=== PATIENT | female | born 1935 | race African-American/Black ===

== ENCOUNTER 2020-07-21 08:59 | Outpatient (CLI) | payer MEDICARE, OTHER ==
--- NOTE | 2020-07-21 09:56 | MRI ---
Exam: Brain MRI without contrast HISTORY: Cognitive dysfunction. Headache. COMPARISON: None FINDINGS: Calvarial marrow signal intensity: Appropriate T1 signal Gradient echo sequence: No hemorrhage Brain parenchyma: No mass, mass effect or midline shift. Brain volume, age-appropriate. Cortical kimble-white matter differentiation: Preserved Restricted diffusion: Central arterial flow voids are maintained. Absent restricted diffusion White matter signal intensities:Scattered T2, FLAIR white matter hyperintensities due to chronic smal l vessel ischemic changes Sinuses: Minimal mucosal thickening of the ethmoid air cells. Adequate right mastoid air cell aeratio n. Partial opacification of the left mastoid air cells. IMPRESSION: 1. Age-appropriate atrophy. Chronic small vessel ischemic changes of the white matter 2. Absent restricted diffusion. No acute infarct.
== END 2020-07-21 09:00 | disposition home or self-care (01) ==
LOC: BICMRI 08:59
PROVIDERS: ATTEND Family Medicine
DX: F09 Unspecified mental disorder due to known physiological condition (principal); G93.89 Other specified disorders of brain
CPT/HCPCS: 70551

== ENCOUNTER 2024-09-03 09:21 | Inpatient (IN) | payer OTHER ==
[2024-09-03] MEDS ORDERED: Boostrix 0.5 ML (Tdap) VIAL (>/=7 yrs of age) ONE (10:15)
[2024-09-03] MEDS ORDERED: Famotidine/PF 20 mg/2ml Vial ONE (10:22)
[2024-09-03] MEDS ORDERED: methylPREDNISolone Sod Succ 40 MG VIAL ONE (10:22)
[2024-09-03] MEDS ORDERED: diphenhydrAMINE 50 MG/ML VIAL ONE (10:22)
[2024-09-03 10:26] LABS: #Basophils Less than 0.03 10x3/uL (0.0-0.2); #Eosinophils Less than 0.03 10x3/uL (0.0-0.7); %Basophils 0.1 % (0.0-1.0); %Eosinophils 0.1 % (0.0-10.0); %Lymphocytes 7.2 % (21.0-51.0); %Monocytes 8.9 % (0.0-10.0); %Neutrophils 83.3 % (42.0-75.0); Hematocrit 35.5 % (36.0-47.0); Hemoglobin 10.9 g/dL (12.0-16.0); Mean Corpuscular HGB CONC 30.7 g/dL (32.0-36.0); Mean Corpuscular Hemoglobin 22.8 pg (27.0-31.0); Mean Corpuscular Volume 74.3 fL (78.0-98.0); Mean Platelet Volume 12.8 fL (7.4-10.4); Platelet Count 182 10x3/uL (130-400); RBC Distribution Width 15.9 % (11.5-14.5); Red Blood Cell (RBC) Count 4.78 mill/uL (4.20-5.40)
[2024-09-03 10:34] LABS: ALT (SGPT) 22 U/L (8-55); AST (SGOT) 63 U/L (5-34); Albumin 3.1 g/dL (3.4-4.8); Alkaline Phosphatase 103 U/L (40-110); Anion Gap 16 mmol/L (10-20); BUN (Urea Nitrogen) 39 mg/dL (9.8-20.1); Bilirubin, Total 1.2 mg/dL (0.2-1.2); CK (CPK) 2192 U/L (29-168); Calc. Creatinine Clearance 0 mL/min (70-130); Calcium 9.9 mg/dL (7.8-10.44); Carbon Dioxide 18 mmol/L (23-31); Chloride 116 mmol/L (98-107); Estimated GFR 47; Globulin 3.7 g/dL (2.4-3.5); Glucose 120 mg/dL (83-110); Lipase 7 U/L (8-78); Magnesium 2.5 mg/dL (1.6-2.6); Potassium 5.1 mmol/L (3.5-5.1); Protein, Total 6.8 g/dL (5.8-8.1); Sodium 145 mmol/L (136-145)
[2024-09-03 10:38] LABS: Troponin I 0.012 ng/mL (< 0.028)
[2024-09-03 10:59] LABS: Anisocytosis SLIGHT = 6-15 cells HPF (0-5); Burr Cells SLIGHT = 2-5 cells HPF (0-1); Macrocytosis SLIGHT = 6-15 cells HPF (0-5); Ovalocytes SLIGHT = 2-5 cells HPF (0-1); Platelet Adequacy Comment Platelets Normal; Polychromasia SLIGHT = 2-3 cells HPF (0-2)
[2024-09-03] MEDS ORDERED: Morphine 4 MG/ML VIAL ONE (11:18)
[2024-09-03] MEDS ORDERED: Iopamidol-370 76% 500 ML MDV (1 ML CHARGE) ONE (11:53)
[2024-09-03] MEDS ORDERED: Magnevist 469MG/ML 20 ML VIAL ONE (12:19)
[2024-09-03 12:33] LABS: Bacteria/HPF 4+ HPF (None Seen); Bilirubin Negative (Negative); Blood, Urine 2+ (Negative); CAUTI Indications for Culture Alt mental st,lethar; Clarity Extra Turbid (Clear); Glucose, Urine (Dipstick) Normal (Negative); Ketone, Urine Trace mg/dL (Negative); Leukocyte 500 Leu/uL (Negative); Nitrite 1+ (Negative); Protein, Urine (Dipstick) 50 mg/dL (Neg-Trace); Specific Gravity, Urine 1.026 (1.002-1.036); Squamous Epithelial None Seen HPF (0-3); Transitional Epithelial 0-3 HPF (None Seen); Urobilinogen Normal mg/dL (Less than 2); WBC/HPF Greater than 50 HPF (0-3); pH, Urine 5.5 (5.0-9.0)
[2024-09-03 12:36] LABS: Urine Culture Reflex Yes Yes
[2024-09-03] MEDS ORDERED: Cefepime 2 GM VIAL ONE (12:41)
[2024-09-03] MEDS ORDERED: Sodium Chloride 0.9% 100 ML ONE (12:41)
[2024-09-03] MEDS ORDERED: Senokot S 8.6-50 MG TAB PO PRN (13:41)
[2024-09-03] MEDS ORDERED: Bisacodyl 5 MG TAB PO PRN (13:41)
[2024-09-03] MEDS ORDERED: Acetaminophen 650 MG Suppository PR PRN (13:41)
[2024-09-03] MEDS ORDERED: Ondansetron ODT 4 MG TAB PO PRN (13:41)
[2024-09-03 18:35] VITALS: BMI 28.1
[2024-09-03] MEDS ORDERED: Vancomycin 1 GM in Sodium Chloride 0.9% 250 ML 250 ML IVPB SCH (21:00)
[2024-09-03] MEDS: Sodium Chloride 0.9% 1,000 ML IV SCH (21:16)
[2024-09-03] MEDS: Vancomycin 1 GM in Premix 1 BAG IVPB SCH (21:16)
[2024-09-03] MEDS: Acetaminophen 325 MG TAB PO PRN (21:29)
[2024-09-04] MEDS: Cefepime 2 GM in Sodium Chloride 0.9% 100 ML IVPB SCH (00:21)
[2024-09-04 04:16] LABS: #Basophils Less than 0.03 10x3/uL (0.0-0.2); #Eosinophils Less than 0.03 10x3/uL (0.0-0.7); %Basophils 0.1 % (0.0-1.0); %Lymphocytes 6.1 % (21.0-51.0); %Monocytes 5.7 % (0.0-10.0); %Neutrophils 87.5 % (42.0-75.0); Hematocrit 33.1 % (36.0-47.0); Mean Corpuscular HGB CONC 30.2 g/dL (32.0-36.0); Mean Corpuscular Hemoglobin 23.1 pg (27.0-31.0); Mean Corpuscular Volume 76.4 fL (78.0-98.0); Platelet Count 188 10x3/uL (130-400); Red Blood Cell (RBC) Count 4.33 mill/uL (4.20-5.40); Vancomycin, Random 37.9 ug/mL (See Comment)
[2024-09-04 04:17] LABS: Anion Gap 19 mmol/L (10-20); BUN (Urea Nitrogen) 45 mg/dL (9.8-20.1); Calc. Creatinine Clearance 34 mL/min (70-130); Calcium 9.1 mg/dL (7.8-10.44); Carbon Dioxide 15 mmol/L (23-31); Chloride 115 mmol/L (98-107); Estimated GFR 41; Glucose 109 mg/dL (83-110); Potassium 4.8 mmol/L (3.5-5.1); Sodium 144 mmol/L (136-145)
[2024-09-04 05:38] LABS: Hemoglobin A1c 5.3 % (4.0-6.0)
[2024-09-04] MEDS: Vancomycin (BATCH) 1.75 GM in Premix 1 BAG IVPB SCH (07:13)
[2024-09-04] MEDS: Sotalol HCl 80 MG TAB PO SCH (08:49)
[2024-09-04 10:40] VITALS: BMI 28.8
[2024-09-04] MEDS ORDERED: Vancomycin Dose by Levels Sliding Scale (Wt 71-99) FS SCH (12:30)
[2024-09-04] MEDS: Cefepime 1 GM in Sodium Chloride 0.9% 100 ML IVPB SCH (23:51)
[2024-09-05 04:44] LABS: ALT (SGPT) 25 U/L (8-55); AST (SGOT) 52 U/L (5-34); Albumin 2.6 g/dL (3.4-4.8); Alkaline Phosphatase 71 U/L (40-110); Anion Gap 13 mmol/L (10-20); BUN (Urea Nitrogen) 43 mg/dL (9.8-20.1); Bilirubin, Total 0.6 mg/dL (0.2-1.2); Calc. Creatinine Clearance 39 mL/min (70-130); Calcium 8.8 mg/dL (7.8-10.44); Carbon Dioxide 17 mmol/L (23-31); Chloride 116 mmol/L (98-107); Estimated GFR 47; Globulin 3.2 g/dL (2.4-3.5); Glucose 79 mg/dL (83-110); Protein, Total 5.8 g/dL (5.8-8.1); Sodium 142 mmol/L (136-145)
[2024-09-05 04:55] LABS: Hematocrit 28.8 % (36.0-47.0); Hemoglobin 8.9 g/dL (12.0-16.0); Mean Corpuscular HGB CONC 30.9 g/dL (32.0-36.0); Mean Corpuscular Hemoglobin 22.8 pg (27.0-31.0); Mean Corpuscular Volume 73.8 fL (78.0-98.0); Mean Platelet Volume 12.8 fL (7.4-10.4); Platelet Count 170 10x3/uL (130-400); RBC Distribution Width 15.9 % (11.5-14.5)
[2024-09-05 06:15] LABS: Band 1 % (5-11); Eosinophils 1 % (0-10); Hypochromia SLIGHT = 6-15 cells HPF (0-5); Lymphocytes 19 % (21-51); Microcytosis SLIGHT = 6-15 cells HPF (0-5); Monocytes 3 % (0-10); Neutrophil 76 % (42-75); Ovalocytes SLIGHT = 2-5 cells HPF (0-1); Platelet Adequacy Comment Platelets Normal; Poikilocytosis SLIGHT = 6-15 cells HPF (0-5); Polychromasia SLIGHT = 2-3 cells HPF (0-2)
[2024-09-05] MEDS: Morphine 2 MG/ML VIAL SLOW IVP PRN (11:57)
[2024-09-05 12:11] LABS: Vancomycin, Trough 19.5 ug/mL
[2024-09-05] MEDS: Vancomycin HCl 500 MG in Sodium Chloride 0.9% 100 ML IV SCH (13:52)
[2024-09-06 05:45] LABS: #Basophils Less than 0.03 10x3/uL (0.0-0.2); %Basophils 0.3 % (0.0-1.0); %Lymphocytes 23.5 % (21.0-51.0); %Monocytes 9.7 % (0.0-10.0); %Neutrophils 60.7 % (42.0-75.0); Hemoglobin 9.1 g/dL (12.0-16.0); Mean Corpuscular HGB CONC 30.3 g/dL (32.0-36.0); Mean Corpuscular Hemoglobin 23.1 pg (27.0-31.0); Mean Corpuscular Volume 76.1 fL (78.0-98.0); Mean Platelet Volume 13.4 fL (7.4-10.4); Platelet Count 150 10x3/uL (130-400); RBC Distribution Width 16.1 % (11.5-14.5); Red Blood Cell (RBC) Count 3.94 mill/uL (4.20-5.40)
[2024-09-06 05:56] LABS: Anion Gap 11 mmol/L (10-20); BUN (Urea Nitrogen) 39 mg/dL (9.8-20.1); Calc. Creatinine Clearance 46 mL/min (70-130); Calcium 8.7 mg/dL (7.8-10.44); Carbon Dioxide 16 mmol/L (23-31); Chloride 119 mmol/L (98-107); Estimated GFR 58; Glucose 91 mg/dL (83-110); Potassium 3.9 mmol/L (3.5-5.1); Sodium 142 mmol/L (136-145)
[2024-09-06] MEDS: Atorvastatin Calcium 10 MG TAB PO SCH (11:34)
[2024-09-06] MEDS: Losartan 25 MG TAB PO SCH (11:35)
[2024-09-06] MEDS: Lidocaine 4% Patch TD SCH (11:35)
[2024-09-06] MEDS: Isosorbide Mononitrate 30 MG ER.TAB PO SCH (11:35)
[2024-09-06 17:02] LABS: Vancomycin, Trough 17.3 ug/mL
[2024-09-06 17:05] LABS: ALT (SGPT) 21 U/L (8-55); AST (SGOT) 30 U/L (5-34); Albumin 2.2 g/dL (3.4-4.8); Alkaline Phosphatase 77 U/L (40-110); Anion Gap 12 mmol/L (10-20); BUN (Urea Nitrogen) 36 mg/dL (9.8-20.1); Bilirubin, Total 0.3 mg/dL (0.2-1.2); Calc. Creatinine Clearance 41 mL/min (70-130); Calcium 8.3 mg/dL (7.8-10.44); Carbon Dioxide 14 mmol/L (23-31); Chloride 119 mmol/L (98-107); Estimated GFR 50; Globulin 2.9 g/dL (2.4-3.5); Glucose 127 mg/dL (83-110); Potassium 3.8 mmol/L (3.5-5.1); Protein, Total 5.1 g/dL (5.8-8.1); Sodium 141 mmol/L (136-145)
[2024-09-06] MEDS: Transdermal Lidocaine Patch Removal TOP SCH (21:00)
[2024-09-07 05:05] LABS: #Basophils Less than 0.03 10x3/uL (0.0-0.2); %Basophils 0.3 % (0.0-1.0); %Eosinophils 4.7 % (0.0-10.0); %Lymphocytes 24.6 % (21.0-51.0); %Monocytes 10.3 % (0.0-10.0); %Neutrophils 57.2 % (42.0-75.0); Hematocrit 26.4 % (36.0-47.0); Hemoglobin 8.1 g/dL (12.0-16.0); Mean Corpuscular HGB CONC 30.7 g/dL (32.0-36.0); Mean Corpuscular Hemoglobin 22.8 pg (27.0-31.0); Mean Corpuscular Volume 74.4 fL (78.0-98.0); Mean Platelet Volume 12.5 fL (7.4-10.4); Platelet Count 130 10x3/uL (130-400); RBC Distribution Width 16.2 % (11.5-14.5); Red Blood Cell (RBC) Count 3.55 mill/uL (4.20-5.40)
[2024-09-07 05:13] LABS: Anion Gap 9 mmol/L (10-20); BUN (Urea Nitrogen) 32 mg/dL (9.8-20.1); Calc. Creatinine Clearance 45 mL/min (70-130); Calcium 8.2 mg/dL (7.8-10.44); Carbon Dioxide 19 mmol/L (23-31); Chloride 118 mmol/L (98-107); Estimated GFR 56; Glucose 92 mg/dL (83-110); Magnesium 2.3 mg/dL (1.6-2.6); Potassium 4.2 mmol/L (3.5-5.1); Sodium 142 mmol/L (136-145)
[2024-09-07] MEDS: Potassium Chloride 20 MEQ TAB PO SCH (09:15)
[2024-09-07] MEDS ORDERED: Lidocaine 1% PF 5 ML VIAL ONE (12:44)
[2024-09-07] MEDS ORDERED: Sodium Bicarbonate 2.5 MEQ/5 ML SDV ONE (12:44)
[2024-09-07] MEDS ORDERED: Acetaminophen 325 MG TAB PO PRN (13:15)
[2024-09-07] MEDS: Vancomycin HCl 500 MG in Sodium Chloride 0.9% 100 ML IVPB SCH (15:30)
[2024-09-07] MEDS: Acetaminophen 325 MG TAB PO SCH (15:42)
[2024-09-07] MEDS: Vancomycin HCl 750 MG in Sodium Chloride 0.9% 250 ML 250 ML IVPB SCH (16:24)
[2024-09-07] MEDS: Senokot S 8.6-50 MG TAB PO SCH (21:28)
[2024-09-07] MEDS: Thiamine 100 MG TAB PO SCH (21:28)
[2024-09-07] MEDS: Multivit, Therapeutic 1 TAB PO SCH (21:28)
[2024-09-07] MEDS: traMADol HCl 50 MG TAB PO PRN (21:28)
[2024-09-07] MEDS: Cyanocobalamin (Vitamin B-12) 1,000 MCG TAB PO SCH (21:28)
[2024-09-07] MEDS: Folic Acid 1 MG TAB PO SCH (21:28)
[2024-09-07] MEDS: Cefepime 2 GM in Sodium Chloride 0.9% 100 ML IVPB SCH (23:55)
[2024-09-08 05:42] LABS: #Basophils 0.05 10x3/uL (0.0-0.2); %Basophils 0.7 % (0.0-1.0); %Eosinophils 4.7 % (0.0-10.0); %Lymphocytes 21.7 % (21.0-51.0); %Monocytes 9.9 % (0.0-10.0); %Neutrophils 58.1 % (42.0-75.0); Hematocrit 27.3 % (36.0-47.0); Hemoglobin 7.9 g/dL (12.0-16.0); Mean Corpuscular HGB CONC 28.9 g/dL (32.0-36.0); Mean Corpuscular Hemoglobin 22.7 pg (27.0-31.0); Mean Corpuscular Volume 78.4 fL (78.0-98.0); Mean Platelet Volume 13.2 fL (7.4-10.4); Platelet Count 142 10x3/uL (130-400); RBC Distribution Width 16.5 % (11.5-14.5); Red Blood Cell (RBC) Count 3.48 mill/uL (4.20-5.40)
[2024-09-08 06:12] LABS: Burr Cells SLIGHT = 2-5 cells HPF (0-1); Elliptocytes SLIGHT = 2-5 cells HPF (0-1); Platelet Adequacy Comment Platelets Normal
[2024-09-08 06:23] LABS: Vancomycin, Random 11.2 ug/mL (See Comment)
[2024-09-08 06:27] LABS: CK (CPK) 163 U/L (29-168); Calc. Creatinine Clearance 44 mL/min (70-130); Estimated GFR 54; Magnesium 2.2 mg/dL (1.6-2.6)
[2024-09-08 06:32] LABS: Anion Gap 10 mmol/L (10-20); BUN (Urea Nitrogen) 30 mg/dL (9.8-20.1); Calc. Creatinine Clearance 45 mL/min (70-130); Calcium 8.8 mg/dL (7.8-10.44); Carbon Dioxide 15 mmol/L (23-31); Chloride 118 mmol/L (98-107); Estimated GFR 56; Glucose 84 mg/dL (83-110); Phosphorus 2.4 mg/dL (2.3-4.7); Potassium 4.2 mmol/L (3.5-5.1); Sodium 139 mmol/L (136-145)
[2024-09-08] MEDS: Ergocalciferol 1.25 MG(50,000 UNITS) CAP PO SCH (09:25)
[2024-09-08 13:26] LABS: Anion Gap 10 mmol/L (10-20); BUN (Urea Nitrogen) 32 mg/dL (9.8-20.1); Calc. Creatinine Clearance 44 mL/min (70-130); Calcium 8.9 mg/dL (7.8-10.44); Carbon Dioxide 18 mmol/L (23-31); Chloride 116 mmol/L (98-107); Estimated GFR 54; Glucose 122 mg/dL (83-110); Potassium 4.1 mmol/L (3.5-5.1); Sodium 140 mmol/L (136-145)
[2024-09-08 13:27] LABS: Lactic Acid 1.19 mmol/L (0.5-2.2)
[2024-09-09 05:30] LABS: Anion Gap 11 mmol/L (10-20); BUN (Urea Nitrogen) 30 mg/dL (9.8-20.1); Calc. Creatinine Clearance 43 mL/min (70-130); Calcium 9.1 mg/dL (7.8-10.44); Carbon Dioxide 15 mmol/L (23-31); Chloride 117 mmol/L (98-107); Estimated GFR 54; Glucose 89 mg/dL (83-110); Potassium 4.8 mmol/L (3.5-5.1); Sodium 138 mmol/L (136-145)
[2024-09-09 05:38] LABS: #Basophils Less than 0.03 10x3/uL (0.0-0.2); %Basophils 0.3 % (0.0-1.0); %Eosinophils 4.6 % (0.0-10.0); %Lymphocytes 18.1 % (21.0-51.0); %Monocytes 9.3 % (0.0-10.0); %Neutrophils 64.2 % (42.0-75.0); Hematocrit 27.2 % (36.0-47.0); Hemoglobin 8.1 g/dL (12.0-16.0); Mean Corpuscular HGB CONC 29.8 g/dL (32.0-36.0); Mean Corpuscular Hemoglobin 22.9 pg (27.0-31.0); Mean Corpuscular Volume 77.1 fL (78.0-98.0); Mean Platelet Volume 13.8 fL (7.4-10.4); Platelet Count 157 10x3/uL (130-400); RBC Distribution Width 17.1 % (11.5-14.5); Red Blood Cell (RBC) Count 3.53 mill/uL (4.20-5.40)
[2024-09-10] MEDS: traMADol HCl 50 MG TAB PO PRN (03:31)
[2024-09-10] MEDS: Losartan 25 MG TAB PO SCH (08:39)
[2024-09-10] MEDS: Sotalol HCl 80 MG TAB PO SCH (08:39)
[2024-09-10] MEDS: Sodium Chloride 0.9% 0 ML ONE (11:26)
[2024-09-10] MEDS: Cefepime 2 GM in Sodium Chloride 0.9% 100 ML IVPB SCH (11:27)
[2024-09-11 16:23] VITALS: BP 134/70; TEMP 98.9
== END 2024-09-11 16:31 | DRG 871 ==
LOC: ERS 09:21 → ERHOLD 12:44 → PCU 17:46 → SURG B 09-06 18:14 → T4-A 09-09 22:20
PROVIDERS: ADMIT Family Medicine; ATTEND Internal Medicine
DX: A41.9 Sepsis, unspecified organism (principal); G93.41 Metabolic encephalopathy; M86.9 Osteomyelitis, unspecified; N39.0 Urinary tract infection, site not specified; T79.6XXA Traumatic ischemia of muscle, initial encounter; R65.20 Severe sepsis without septic shock; W18.30XA Fall on same level, unspecified, initial encounter; M46.46 Discitis, unspecified, lumbar region; I50.9 Heart failure, unspecified; I48.91 Unspecified atrial fibrillation; I11.0 Hypertensive heart disease with heart failure; Z91.041 Radiographic dye allergy status; I25.10 Atherosclerotic heart disease of native coronary artery without angina pectoris; K21.9 Gastro-esophageal reflux disease without esophagitis; E78.5 Hyperlipidemia, unspecified; M10.9 Gout, unspecified; M06.9 Rheumatoid arthritis, unspecified; Z98.890 Other specified postprocedural states
CPT/HCPCS: 36415; 36573; 51701; 70450; 71045; 71260; 72125; 72158; 72170; 74177; 80048; 80053; 80202; 81001; 82306; 82550; 82565; 83036; 83605; 83690; 83735; 84100; 84484; 85025; 86141; 86850; 86900; 86901; 87040; 87077; 87086; 87149; 87186; 90471; 90715; 93005; 96361; 96365; 96366; 96367; 96375; 97139; C1751; J0692; J1200; J2272; J2919; J3370; J3490; J7050; Q9967

== ENCOUNTER 2024-09-21 22:57 | Inpatient (IN) | payer OTHER ==
[2024-09-22] MEDS ORDERED: traMADol HCl 50 MG TAB PO PRN (00:59)
[2024-09-22] MEDS ORDERED: Ondansetron ODT 4 MG TAB PO PRN (00:59)
[2024-09-22] MEDS ORDERED: Acetaminophen 650 MG Suppository PR PRN (00:59)
[2024-09-22 01:33] VITALS: BMI 29.2
[2024-09-22] MEDS: Sodium Chloride 0.9% 1,000 ML IV SCH ×2 (01:58→12:21)
[2024-09-22] MEDS ORDERED: Vancomycin Dose by Levels Sliding Scale (Wt 71-99) FS SCH (05:15)
[2024-09-22] MEDS ORDERED: Cefepime 2 GM in Sodium Chloride 0.9% 100 ML IVPB SCH (06:00)
[2024-09-22 06:53] LABS: Anion Gap 12 mmol/L (10-20); BUN (Urea Nitrogen) 47 mg/dL (9.8-20.1); Calc. Creatinine Clearance 22 mL/min (70-130); Calcium 9.8 mg/dL (7.8-10.44); Carbon Dioxide 17 mmol/L (23-31); Chloride 120 mmol/L (98-107); Estimated GFR 21; Glucose 91 mg/dL (83-110); Sodium 145 mmol/L (136-145)
[2024-09-22 06:57] LABS: #Basophils Less than 0.03 10x3/uL (0.0-0.2); %Basophils 0.3 % (0.0-1.0); %Eosinophils 4.6 % (0.0-10.0); %Lymphocytes 20.9 % (21.0-51.0); %Monocytes 13.7 % (0.0-10.0); Hematocrit 26.9 % (36.0-47.0); Hemoglobin 8.2 g/dL (12.0-16.0); Mean Corpuscular HGB CONC 30.5 g/dL (32.0-36.0); Mean Corpuscular Hemoglobin 23.2 pg (27.0-31.0); Mean Corpuscular Volume 76.2 fL (78.0-98.0); Platelet Count 117 10x3/uL (130-400); RBC Distribution Width 18.8 % (11.5-14.5); Red Blood Cell (RBC) Count 3.53 mill/uL (4.20-5.40)
[2024-09-22] MEDS: Vancomycin (BATCH) 2 GM in Premix 1 BAG IVPB SCH (07:37)
[2024-09-22] MEDS: Cefepime 1 GM in Sodium Chloride 0.9% 100 ML IVPB SCH (08:50)
[2024-09-22] MEDS ORDERED: Enoxaparin 40 MG (0.4 mL) SYRINGE SC SCH (09:00)
[2024-09-22] MEDS ORDERED: Vancomycin 1 GM in Sodium Chloride 0.9% 250 ML 250 ML IVPB SCH (09:00)
[2024-09-22] MEDS ORDERED: Enoxaparin 30 MG (0.3 mL) SYRINGE SC SCH (09:00)
[2024-09-22] MEDS: Isosorbide Mononitrate 30 MG ER.TAB PO SCH (10:20)
[2024-09-22] MEDS: Ergocalciferol 1.25 MG(50,000 UNITS) CAP PO SCH (10:20)
[2024-09-22] MEDS: Sotalol HCl 80 MG TAB PO SCH (10:22)
[2024-09-22] MEDS: traMADol HCl 50 MG TAB PO PRN (11:22)
[2024-09-22] MEDS: Acetaminophen 325 MG TAB PO PRN (12:52)
[2024-09-22] MEDS: Morphine 4 MG/ML VIAL SLOW IVP SCH (13:57)
[2024-09-22] MEDS: Ondansetron PF 4 MG/2 ML Vial IVP PRN (14:03)
[2024-09-22 19:28] VITALS: BMI 29.2
[2024-09-22] MEDS: Folic Acid 1 MG TAB PO SCH (20:18)
[2024-09-22] MEDS: Multivit, Therapeutic 1 TAB PO SCH (20:18)
[2024-09-22] MEDS: Atorvastatin Calcium 10 MG TAB PO SCH (20:20)
[2024-09-22] MEDS: Cyanocobalamin (Vitamin B-12) 1,000 MCG TAB PO SCH (20:21)
[2024-09-22] MEDS: Morphine 2 MG/ML VIAL SLOW IVP PRN (21:13)
[2024-09-23 05:46] LABS: #Basophils 0.03 10x3/uL (0.0-0.2); %Basophils 0.5 % (0.0-1.0); %Eosinophils 5.6 % (0.0-10.0); %Lymphocytes 20.4 % (21.0-51.0); %Monocytes 15.4 % (0.0-10.0); %Neutrophils 57.8 % (42.0-75.0); Hematocrit 27.6 % (36.0-47.0); Hemoglobin 8.2 g/dL (12.0-16.0); Mean Corpuscular HGB CONC 29.7 g/dL (32.0-36.0); Mean Corpuscular Volume 77.3 fL (78.0-98.0); Platelet Count 112 10x3/uL (130-400); RBC Distribution Width 18.6 % (11.5-14.5); Red Blood Cell (RBC) Count 3.57 mill/uL (4.20-5.40)
[2024-09-23] MEDS ORDERED: Vancomycin (BATCH) 1.25 GM in Premix 1 BAG IVPB SCH (06:00)
[2024-09-23 06:15] LABS: Anion Gap 10 mmol/L (10-20); BUN (Urea Nitrogen) 43 mg/dL (9.8-20.1); Calc. Creatinine Clearance 23 mL/min (70-130); Calcium 9.7 mg/dL (7.8-10.44); Carbon Dioxide 16 mmol/L (23-31); Chloride 124 mmol/L (98-107); Estimated GFR 22; Glucose 74 mg/dL (83-110); Potassium 3.9 mmol/L (3.5-5.1); Sodium 146 mmol/L (136-145)
[2024-09-23] MEDS: Lidocaine 4% Patch TD SCH (09:20)
[2024-09-23] MEDS: Dextrose 5 %-0.45 % NaCl 1,000 ML IV SCH (12:44)
[2024-09-23] MEDS: Vancomycin HCl 500 MG in Sodium Chloride 0.9% 100 ML IVPB SCH (12:45)
[2024-09-23] MEDS: Transdermal Patch Removal TOP SCH (20:34)
[2024-09-23] MEDS: traMADol HCl 50 MG TAB PO PRN (20:39)
[2024-09-24 05:47] LABS: Hematocrit 26.8 % (36.0-47.0); Hemoglobin 7.8 g/dL (12.0-16.0); Platelet Count 109 10x3/uL (130-400)
[2024-09-24 05:55] LABS: Anion Gap 11 mmol/L (10-20); BUN (Urea Nitrogen) 43 mg/dL (9.8-20.1); Calc. Creatinine Clearance 20 mL/min (70-130); Calcium 9.8 mg/dL (7.8-10.44); Carbon Dioxide 16 mmol/L (23-31); Chloride 120 mmol/L (98-107); Estimated GFR 19; Glucose 122 mg/dL (83-110); Potassium 3.9 mmol/L (3.5-5.1); Sodium 143 mmol/L (136-145)
[2024-09-24] MEDS: Potassium Chloride 10 MEQ TAB PO SCH (07:56)
[2024-09-24] MEDS: Dextrose 5 %-0.45 % NaCl 1,000 ML IV SCH (14:20)
[2024-09-25 05:47] LABS: Hematocrit 28.4 % (36.0-47.0); Hemoglobin 8.4 g/dL (12.0-16.0); Platelet Count 127 10x3/uL (130-400)
[2024-09-25 06:13] LABS: Anion Gap 10 mmol/L (10-20); BUN (Urea Nitrogen) 41 mg/dL (9.8-20.1); Calc. Creatinine Clearance 20 mL/min (70-130); Carbon Dioxide 16 mmol/L (23-31); Chloride 121 mmol/L (98-107); Estimated GFR 18; Glucose 102 mg/dL (83-110); Potassium 3.9 mmol/L (3.5-5.1); Sodium 143 mmol/L (136-145)
[2024-09-25] MEDS: Sodium Bicarbonate 150 MEQ in Dextrose 5% in Water 1,000 ML IV SCH (17:52)
[2024-09-26 18:09] LABS: Hematocrit 26.6 % (36.0-47.0); Platelet Count 127 10x3/uL (130-400)
[2024-09-26 18:23] LABS: Anion Gap 10 mmol/L (10-20); BUN (Urea Nitrogen) 37 mg/dL (9.8-20.1); Calc. Creatinine Clearance 23 mL/min (70-130); Calcium 9.7 mg/dL (7.8-10.44); Carbon Dioxide 18 mmol/L (23-31); Chloride 119 mmol/L (98-107); Estimated GFR 22; Glucose 100 mg/dL (83-110); Potassium 3.4 mmol/L (3.5-5.1); Sodium 144 mmol/L (136-145)
[2024-09-27] MEDS: traMADol HCl 50 MG TAB PO PRN (15:53)
[2024-09-28 06:26] LABS: Anion Gap 8 mmol/L (10-20); BUN (Urea Nitrogen) 34 mg/dL (9.8-20.1); Calc. Creatinine Clearance 23 mL/min (70-130); Calcium 9.9 mg/dL (7.8-10.44); Carbon Dioxide 18 mmol/L (23-31); Chloride 118 mmol/L (98-107); Estimated GFR 22; Glucose 97 mg/dL (83-110); Potassium 3.3 mmol/L (3.5-5.1); Sodium 141 mmol/L (136-145)
[2024-09-28] MEDS: Potassium Chloride 20 MEQ TAB PO SCH ×2 (12:35→17:44)
[2024-09-28] MEDS: hydrALAZINE 25 MG TAB PO SCH (20:41)
[2024-09-29 05:23] LABS: Anion Gap 11 mmol/L (10-20); BUN (Urea Nitrogen) 32 mg/dL (9.8-20.1); Calc. Creatinine Clearance 23 mL/min (70-130); Carbon Dioxide 16 mmol/L (23-31); Chloride 119 mmol/L (98-107); Estimated GFR 22; Glucose 108 mg/dL (83-110); Potassium 3.7 mmol/L (3.5-5.1); Sodium 142 mmol/L (136-145)
[2024-09-29 09:09] VITALS: TEMP 97.8
[2024-09-29 13:52] VITALS: BP 168/88
== END 2024-09-29 14:11 | DRG 540 ==
LOC: UNDOADMIN 22:57 → T4-B 22:57
PROVIDERS: ADMIT Family Medicine; ATTEND Internal Medicine
DX: M46.26 Osteomyelitis of vertebra, lumbar region (principal); I48.20 Chronic atrial fibrillation, unspecified; N17.9 Acute kidney failure, unspecified; R78.81 Bacteremia; M46.40 Discitis, unspecified, site unspecified; M06.9 Rheumatoid arthritis, unspecified; I25.10 Atherosclerotic heart disease of native coronary artery without angina pectoris; K21.9 Gastro-esophageal reflux disease without esophagitis; I10 Essential (primary) hypertension; E78.5 Hyperlipidemia, unspecified; Z96.651 Presence of right artificial knee joint; F03.90 Unspecified dementia, unspecified severity, without behavioral disturbance, psychotic disturbance, mood disturbance, and anxiety; D50.9 Iron deficiency anemia, unspecified; R53.81 Other malaise; B96.83 Acinetobacter baumannii as the cause of diseases classified elsewhere; B95.7 Other staphylococcus as the cause of diseases classified elsewhere; Z91.041 Radiographic dye allergy status; Z95.5 Presence of coronary angioplasty implant and graft
CPT/HCPCS: 36415; 72148; 80048; 80202; 85014; 85018; 85025; 85049; 86141; 87081; J0692; J2272; J2405; J3370; J7030; J7042; J7070